=== PATIENT | male | born 1950 | race Caucasian/White ===

== ENCOUNTER 2024-06-24 12:59 | Day surgery (SDC) | payer OTHER ==
[~2024-06-24] VITALS: Ht 172.7 cm; Wt 92.2 kg
[~2024-06-24 12:59] MED LIST: Balanced Salt Epinephrine Irrigation Solution 500 mL IR SCH; LOSA25 PO; Lidocaine HCl/Pf 1% 5 ML VIAL XX SCH; Moxifloxacin HCL 0.5 MG/0.1 ML 0.4MLSYR LEFTEYE SCH; PHENYLEPHRINE\\TROPICAMIDE\\TETRACAINE OPHTHALMIC DILATING SOLN LEFTEYE PRN; Povidone-Iodine 450 DROP/30 ML Solution LEFTEYE SCH; Povidone-Iodine 450 DROP/30 ML Solution ONE; Tetracaine HCl/Pf 0.5% Opth Soln 4 ml ONE; Triamcinolone Inj Susp 40 MG / ML 1ML Vial INJ SCH; Triamcinolone Inj Susp 40 MG / ML 1ML Vial ONE; XARELTO10 M1 PO
[2024-06-24] MEDS ORDERED: Diazepam 2 MG Tab ONE (13:06)
[2024-06-24] MEDS ORDERED: Diazepam 5 MG Tab ONE (13:06)
--- NOTE | 2024-06-24 14:35 | NUR ---
06/24/24 1789 Chiara Allen PATIENT REPORTED ANXIETY AT 06/25 PRIOR TO ADMINISTRATION OF THE 7MG VALIUM AT 1348. STATES HE IS CURRENTLY NOT FEELING MUCH ANXIETY AT ALL
== END 2024-06-24 15:15 | disposition home or self-care (01) ==
LOC: ORSCSDS 12:59
PROVIDERS: Ophthalmology
PROC: 08RK3JZ Replacement of Left Lens with Synthetic Substitute, Percutaneous Approach (ICD-10-PCS; principal; 2024-06-24 14:30)
DX: H25.813 Combined forms of age-related cataract, bilateral (principal); I10 Essential (primary) hypertension; Z86.718 Personal history of other venous thrombosis and embolism; Z87.891 Personal history of nicotine dependence; Z79.01 Long term (current) use of anticoagulants; Z79.899 Other long term (current) drug therapy
CPT/HCPCS: A9270; J3301; V2632

== ENCOUNTER 2024-07-01 06:29 | Day surgery (SDC) | payer OTHER ==
[~2024-07-01] VITALS: Ht 172.7 cm; Wt 93.4 kg
[~2024-07-01 06:29] MED LIST changes: -Moxifloxacin HCL 0.5 MG/0.1 ML 0.4MLSYR LEFTEYE SCH; +Moxifloxacin HCL 0.5 MG/0.1 ML 0.4MLSYR RIGHTEYE SCH; -PHENYLEPHRINE\\TROPICAMIDE\\TETRACAINE OPHTHALMIC DILATING SOLN LEFTEYE PRN; +PHENYLEPHRINE\\TROPICAMIDE\\TETRACAINE OPHTHALMIC DILATING SOLN RIGHTEYE PRN; -Povidone-Iodine 450 DROP/30 ML Solution LEFTEYE SCH; +Povidone-Iodine 450 DROP/30 ML Solution RIGHTEYE SCH; -Triamcinolone Inj Susp 40 MG / ML 1ML Vial ONE
[2024-07-01] MEDS ORDERED: Lidocaine HCl/Pf 1% 5 ML VIAL ONE (06:48)
[2024-07-01] MEDS ORDERED: Triamcinolone Inj Susp 40 MG / ML 1ML Vial ONE (06:48)
[2024-07-01] MEDS ORDERED: Diazepam 2 MG Tab ONE (06:49)
[2024-07-01] MEDS ORDERED: Diazepam 5 MG Tab ONE (06:51)
--- NOTE | 2024-07-01 07:11 | NUR ---
07/01/24 0711 Carol Pham 0700: PT REPORTS ANXIETY OF 06/25 702: 7 MG PO VALIUM GIVEN PER ORDERS FROM DR BRYANT
[2024-07-01] MEDS ORDERED: Tetracaine HCl 0.5% Opth Soln 15 ml RIGHTEYE ONE (07:54)
--- NOTE | 2024-07-01 08:31 | NUR ---
07/01/24 0831 Nadia Brown PT A&O X4, DENIES PAIN/NAUSEA. EYE SHIELD IN PLACE, C/D/I. D/C INSTRUCTIONS GIVEN TO PT, UNDERSTANDING VERBALIZED. PT DECLINED OFFER OF DRINK/SNACK. PT WHEELED OUT TO PRIVATE VEHICLE, DRIVING PT HOME. PT HAS ALL BELONGINGS W/ HIM. NO VISIBLE SIGNS OF DISTRESS NOTED.
== END 2024-07-01 08:27 | disposition home or self-care (01) ==
LOC: ORSCSDS 06:29
PROVIDERS: Ophthalmology
PROC: 08RJ3JZ Replacement of Right Lens with Synthetic Substitute, Percutaneous Approach (ICD-10-PCS; principal; 2024-07-01 08:00)
DX: H25.811 Combined forms of age-related cataract, right eye (principal); Z96.1 Presence of intraocular lens; Z86.718 Personal history of other venous thrombosis and embolism; I10 Essential (primary) hypertension; Z87.891 Personal history of nicotine dependence; Z79.01 Long term (current) use of anticoagulants; Z79.899 Other long term (current) drug therapy
CPT/HCPCS: A9270; J2003; J3301; V2632